=== PATIENT | female | born 1960 | race Caucasian/White ===

== ENCOUNTER → 2020-08-25 | Outpatient (CLI) | payer MEDICARE, OTHER ==
--- NOTE | 2020-08-25 14:50 | P.HPOB ---
History of Present Illness H&P Date: 08/25/20 Chief Complaint: The patient is here for her routine gynecologic exam. This is a 60-year-old with an LMP of approximately 2000. The patient is here to establish with this office. It is been about 9 years since her last pelvic exam. It has also been about 9 years since her last mammogram. The patient is without gynecologic complaints. She is status post BEE and unilateral oophorectomy for benign reasons. Review of Systems The patient has lost she has lost about 15 pounds over the past year pounds over the last year. She has not been really trying to lose weight but is not complaining of the weight loss. She denies respiratory, cardiac, or G.I. problems. Past Medical History Past Medical History: Hypertension Additional Past Medical History / Comment(s): brain tumor 1995, off balance r/t tumor. History of Any Multi-Drug Resistant Organisms: None Reported Past Surgical History: Section, Cholecystectomy, Hysterectomy Additional Past Surgical History / Comment(s): brain surgery, prosthetic eye left. x2. Past Psychological History: Anxiety, Depression Smoking Status: Current every day smoker (1/2-3/4 of a pack per day) Past Alcohol Use History: Rare (2 bottles of wine per year) Past Drug Use History: None Reported Additional History: She has been a since 2013. She has been seeing somebody and has been sexually active in 2019. She does not work outside of the home. - Past Family History Mother Additional Family Medical History / Comment(s): Heart disease. Father Family Medical History: Cancer Additional Family Medical History / Comment(s): Lung cancer. Paternal aunt had breast cancer. Sister(s) Additional Family Medical History / Comment(s): Brain tumor. Medications and Allergies Home Medications Medication Instructions Recorded Confirmed Type ALPRAZolam [Xanax] 0.25 mg PO BID PRN 01/25/15 08/25/20 History Loratadine [Claritin] 10 mg PO DAILY 01/25/15 08/25/20 History amLODIPine [Norvasc] 2.5 mg PO DAILY 01/25/15 08/25/20 History Citalopram Hydrobromide 20 mg PO DAILY 08/25/20 08/25/20 History [Citalopram HBr] HYDROcodone/APAP 5-325MG [[place] 1 tab PO DAILY PRN 08/25/20 08/25/20 History 5-325] Losartan [Cozaar] 50 mg PO DAILY 08/25/20 08/25/20 History Mirtazapine 45 mg PO HS 08/25/20 08/25/20 History Allergies Allergy/AdvReac Type Severity Reaction Status Date / Time amoxicillin Allergy Unknown Verified 08/25/20 13:27 metronidazole [From Flagyl] Allergy Unknown Verified 08/25/20 13:27 penicillin V Allergy Unknown Verified 08/25/20 13:27 Penicillins Allergy Unknown Verified 08/25/20 13:27 Exam Vital Signs Temp Pulse Resp BP Pulse Ox 08/25/20 13:44 97.9 F 78 18 151/87 99 Intake and Output 08/24/20 08/25/20 08/25/20 22:59 06:59 14:59 Other: Weight 54.885 kg Height 5 feet 4 inches, weight 121 pounds, BMI 20.8. This is a well-developed well-nourished white female who is alert and oriented times 3 in no acute distress. HEENT: Within normal limits. NECK: Supple without mass or thyromegaly. CHEST AND LUNGS: Clear to auscultation. HEART: Regular rate and rhythm. BREASTS: Are without mass or discharge. AXILLARY EXAM: Negative for adenopathy. BACK: Negative for CVA tenderness. ABDOMEN: Soft, nontender, without palpable masses. PELVIC EXAM: External genitalia appears normal with mild to moderate atrophy. Vagina appears normal with mild to moderate atrophy. There is no evidence of prolapse. Bimanual examination is negative for mass, but there is tenderness with bimanual examination at the vaginal cuff. The tenderness is not with vaginal hand alone or abdominal hand alone. Seems to be only noticeable with bimanual palpation.. RECTAL EXAM: Rectovaginal exam is negative for mass or tenderness and is negative for occult blood. EXTREMITIES: Nontender. IMPRESSION: 1. 60-year-old menopausal female status post BEE and unilateral oophorectomy for benign reasons with pelvic tenderness with bimanual examination in the area of the vaginal cuff apex. Differential diagnosis will include pelvic adhesions involving bowel or intestines, pelvic adhesions involving her remaining ovary, possible ovarian mass that is not palpable and GI tenderness not associated with adhesions. PLAN: 1. Pap smears have been discontinued. 2. Self breast awareness was discussed with the patient. 3. Mammogram was recommended and the order slip was given to the patient for this. 4. Ultrasound is recommended to further evaluate the pelvic tenderness. The order slip was given to the patient for this. 5. Osteoporosis prevention was discussed. I have stressed the importance of adequate calcium, vitamin D and regular exercise. Recommended amounts of calcium and vitamin D were also discussed. Bone density screening is recommended since she has never had this done. The order slip was given to the patient for this. 6. She was advised to return in one year for her annual well woman exam. [place] If so she will follow-up with a physician in her new home area.
--- NOTE | 2020-11-17 12:12 | P.PN ---
Progress Note - Text Progress Note Date: 11/17/20 OUTPATIENT FOLLOW-UP NOTE TEST(S)/RESULTS: Baseline bone density test done on 11/10/2020 shows osteopenia. METHOD OF NOTIFICATION: The patient was notified by phone. PATIENT COMMENTS: DIAGNOSIS: Osteopenia DISCUSSION: I have stressed the importance of getting adequate calcium, vitamin D and regular exercise. PLAN: Repeat bone density in 2-3 years. She was advised to return in one year for her annual well woman exam.
== END | disposition home or self-care (01) ==
DX: Z53.9 Procedure and treatment not carried out, unspecified reason (principal)

== ENCOUNTER → 2020-11-10 | Outpatient (CLI) | payer MEDICARE ==
--- NOTE | 2020-11-10 15:57 | US ---
EXAMINATION TYPE: US pelvic complete DATE OF EXAM: 11/10/2020 COMPARISON: NONE CLINICAL HISTORY: R68.89 PELVIC TENDERNESS. pelvic tenderness, hysterectomy and right oophorectomy TECHNIQUE: TA. Transabdominal sonographic images of the pelvis were acquired. Date of LMP: 20+yrs ago EXAM MEASUREMENTS: Uterus: Surgically absent Endometrial Stripe: Surgically absent Right Ovary: Surgically absent Left Ovary: not seen 1. Uterus: Surgically absent 2. Endometrium: Surgically absent 3. Right Ovary: Surgically absent 4. Left Ovary: atrophy and bowel gas obscured ovary 5. Bilateral Adnexa: wnl 6. Posterior cul-de-sac: wnl IMPRESSION: 1. Pelvic ultrasound post hysterectomy patient is limited by the bowel gas present. 2. No suspicious acute ultrasound abnormalities identified at this time
--- NOTE | 2020-11-11 13:47 | P.PN ---
Progress Note - Text Progress Note Date: 11/11/20 OUTPATIENT FOLLOW-UP NOTE TEST(S)/RESULTS: Pelvic ultrasound done on 11/10/2020 was unremarkable. METHOD OF NOTIFICATION: The patient was notified by phone. PATIENT COMMENTS: DIAGNOSIS: Unremarkable pelvic ultrasound. DISCUSSION: The tenderness noted with bimanual palpation is probably non-gyne cologic in nature since she is status post BEE and unilateral oophorectomy with no evidence of ovarian mass by ultrasound. The tenderness could've been GI related. PLAN: She also had a bone density test and mammogram done on 11/10/2020 and these are pending.
--- NOTE | 2020-11-12 08:30 | MM ---
Reason for exam: screening (asymptomatic). History: Patient is postmenopausal. Family history of breast cancer in aunt and breast cancer in cousin. Physical Findings: A clinical breast exam by your physician is recommended on an annual basis and results should be correlated with mammographic findings. MG 3D Screening Mammo W/Cad Bilateral CC and MLO view(s) were taken. No prior studies available for comparison. The breast tissue is heterogeneously dense. This may lower the sensitivity of mammography. There is no discrete abnormality. ASSESSMENT: Benign, BI-RAD 2 RECOMMENDATION: Routine screening mammogram of both breasts in 1 year.
--- NOTE | 2020-11-13 08:10 | BD ---
EXAMINATION TYPE: Axial Bone Density DATE OF EXAM: 11/10/2020 COMPARISON: NONE CLINICAL HISTORY: Height: 63 Weight: 118.2 FRAX RISK QUESTIONS: Alcohol (3 or more units per day): no Family History (Parent hip fracture): no Glucocorticoids (More than 3mos): no (Ex: prednisone, prednisolone, methylprednisolone, dexamethasone, and hydrocortisone). History of Fracture in Adulthood: yes Secondary Osteoporosis: 1. Type 1 Diabetes: no 2. Hyperthyroidism: no 3. Menopause before 45: yes 4. Malnutrition: no 5. Chronic liver disease: no Rheumatoid Arthritis: no Current Tobacco Use: yes RISK FACTORS HISTORY OF: Surgery to Spine/Hip(right/left)/Wrist (right/left): no Family History of Osteoporosis: no Active: yes Diet low in dairy products/other sources of calcium: yes Postmenopausal woman: age 40 Lost more than 2 inches in height since high school: no MEDICATIONS: amlodipine, citalopram, losartan, mirtazepine, [place] Additional History: EXAM MEASUREMENTS: Bone mineral densitometry was performed using the [employer] System. Bone mineral density as measured about the Lumbar spine is: ----- L1-L4(G/cm2): 1.076 T Score Values are as follows: ----- L2: -1.5 ----- L3: -0.2 ----- L4: -0.8 ----- L1-L4: -0.9 Bone mineral density : baseline Bone mineral density about the R hip (g/cm2): 0.868 Bone mineral density about the L hip (g/cm2): 0.822 T Score values are as follows: -----R Neck: -1.2 -----L Neck: -1.6 -----R Total: -1.4 -----L Total: -1.1 Bone mineral density : baseline IMPRESSION: Osteopenia (T Score between -2.5 and -1). There is slightly increased risk of fracture and the patient may be considered for treatment. Re-Screen 2-5 years. NOTE: T-SCORE=SD OF THE YOUNG ADULT MEAN.
== END | disposition home or self-care (01) ==
LOC: RADMAMWWP 07:27
PROVIDERS: ATTEND Obstetrics & Gynecology
DX: Z12.31 Encounter for screening mammogram for malignant neoplasm of breast (principal); Z13.820 Encounter for screening for osteoporosis; Z78.0 Asymptomatic menopausal state; M85.80 Other specified disorders of bone density and structure, unspecified site; Z79.899 Other long term (current) drug therapy; Z90.710 Acquired absence of both cervix and uterus
CPT/HCPCS: 76856; 77063; 77067; 77080